=== PATIENT | male | born 1985 | race Caucasian/White ===

== ENCOUNTER 2020-03-25 18:31 | Emergency (ER) | payer SELFPAY ==
[~2020-03-25] VITALS: Ht 172.7 cm; Wt 105.2 kg
[2020-03-25 18:49] VITALS: Ht 172.7 cm; Wt 105.2 kg
[2020-03-25 21:01] VITALS: BP 149/98
== END 2020-03-25 21:01 | disposition left against medical advice (07) ==
LOC: ED 18:31
DX: Z53.21 Procedure and treatment not carried out due to patient leaving prior to being seen by health care provider (principal)